=== PATIENT | female | born 1955 | race Caucasian/White ===

== ENCOUNTER 2024-02-13 05:54 | Day surgery (SDC) | payer MEDICARE, BC ==
[2024-02-07 15:12] LABS: BASOPHILS % (AUTO) 0.4 % (0-1); EOSINOPHILS # (AUTO) 0.2 X10'3 (0-0.9); EOSINOPHILS % (AUTO) 2.3 % (0-6); LYMPHOCYTES # (AUTO) 2.6 X10'3 (1.1-4.8); LYMPHOCYTES % (AUTO) 26.9 % (21-51); MEAN CORPUSCULAR HEMOGLOBIN 30.8 PG (27.0-31.0); MEAN CORPUSCULAR VOLUME 90.5 FL (78-98); MEAN PLATELET VOLUME 7.5 FL (7.4-10.4); MONOCYTES # (AUTO) 0.7 X10'3 (0-0.9); MONOCYTES % (AUTO) 7.2 % (2-12); NEUTROPHILS % (AUTO) 63.2 % (42-75); PRE OP HEMATOCRIT 45.4 % (35.0-45.0); PRE OP HEMOGLOBIN 15.5 g/dL (12.0-16.0); PRE OP PLATELET COUNT 341 X10'3 (140-440); PRE OP WHITE BLOOD COUNT 9.5 10'3 (4.8-10.8); RED BLOOD COUNT 5.02 X10'6 (4.20-5.60); RED CELL DISTRIBUTION WIDTH 13.1 % (11.5-14.5)
[2024-02-07 15:21] LABS: ALBUMIN 3.8 G/DL (3.4-5.0); ALBUMIN/GLOBULIN RATIO 1.2 (1.1-1.5); ALKALINE PHOSPHATASE 161 IU/L (46-116); BLOOD UREA NITROGEN 18 MG/DL (7-18); BUN/CREATININE RATIO 28.1 (10.0-20.0); CALCIUM 9.4 MG/DL (8.5-10.1); CHLORIDE 101 MMOL/L (99-107); CREATININE 0.64 MG/DL (0.40-0.90); PRE OP ALT 25 U/L (30-65); PRE OP ANION GAP 10 (8-16); PRE OP AST 20 U/L (10-37); PRE OP BILIRUB, TOTAL 0.5 MG/DL (0.0-1.0); PRE OP GLUCOSE 165 MG/DL (70-104); PRE OP POTASSIUM 4.1 MMOL/L (3.4-5.1); PRE OP SODIUM 139 MMOL/L (135-145); TOTAL CARBON DIOXIDE 28.5 MMOL/L (24-32); eGFR > 90 ML/MIN
[2024-02-13] VITALS (15 sets, daily range): BP systolic 110–144; BP diastolic 60–80; PULSE 74–100; RESP 10–18; TEMP 97.5; O2SAT 91–99
[~2024-02-13] VITALS: Ht 162.6 cm; Wt 86.4 kg
[~2024-02-13 05:54] MED LIST: ATOR-2 PO; CETI-194 PO; CHOL500050 PO; DIPH25CA83 PO; DULA4.5P SQ; FAMO20TA8 PO; FLUOCINOLONE; MELA10TA2 PO; METF-1203 PO; OLME40TA18 PO; [UNRECOGNIZED DRUG - CODE] INH
[2024-02-13] MEDS: ringers solution, lacted 1,000 ML IV SCH (06:22)
[2024-02-13] MEDS: famotidine 20mg tablet PO ONE (06:22)
[2024-02-13] MEDS: cefazolin 2gm/D5W 100mL 100 ML IV ONE (06:23)
[2024-02-13] MEDS ORDERED: methylene blue (5mg/ml) 50mg/10ml ampul IV ONE (06:58)
[2024-02-13] MEDS ORDERED: BUPIVACAINE liposomal/PF 13.3 MG/ML vial IM ONE (06:59)
[2024-02-13] MEDS ORDERED: fentaNYL/PF 50MCG/1 ML 2ML syringe ONE (08:16)
[2024-02-13] MEDS ORDERED: sevoflurane 250ml liquid IH ONE (08:24)
[2024-02-13] MEDS ORDERED: dexamethasone sod phosphate 4mg/ml inj. ONE (09:15)
[2024-02-13] MEDS ORDERED: ePHEDrine 50MG/ML INJ. ONE (09:15)
[2024-02-13] MEDS ORDERED: propofol inj 20 ML IV ONE (09:15)
[2024-02-13] MEDS ORDERED: LIDOcaine 2% (20mg/ml) 5ml vial ONE (09:16)
[2024-02-13] MEDS: LIDOcaine 1% (10mg/ml)w/preservative inj. 20ml MDV ONE (09:26)
[2024-02-13] MEDS: BUPIVAcaine/PF 2.5mg/ml (0.25%) 10ml vial ONE (09:32)
[2024-02-13] MEDS ORDERED: meperidine/PF 25mg/ml syringe IV PRN ×2 (09:50)
[2024-02-13] MEDS ORDERED: morphine 2 MG/ML inj. syringe IV PRN (09:50)
[2024-02-13] MEDS ORDERED: proCHLORperazine 10 MG/2 ml inj IV PRN (09:50)
[2024-02-13] MEDS ORDERED: enalaprilat dihydrate 2.5mg/2ml vial IV PRN (09:50)
[2024-02-13] MEDS ORDERED: ondansetron/PF 4mg/2ml inj IV PRN (09:50)
[2024-02-13] MEDS ORDERED: labetalol 20mg/4ml (5mg/ml) syringe IV PRN (09:50)
[2024-02-13] MEDS ORDERED: ringers solution, lacted 1,000 ML IV SCH (09:50)
== END 2024-02-13 11:35 | disposition home or self-care (01) ==
LOC: PAS 05:54
PROVIDERS: ATTEND Surgery
DX: C50.912 Malignant neoplasm of unspecified site of left female breast (principal); I10 Essential (primary) hypertension; E11.9 Type 2 diabetes mellitus without complications; K21.9 Gastro-esophageal reflux disease without esophagitis; E66.9 Obesity, unspecified; Z90.49 Acquired absence of other specified parts of digestive tract; Z90.710 Acquired absence of both cervix and uterus; Z98.51 Tubal ligation status; Z98.890 Other specified postprocedural states; Z68.32 Body mass index [BMI] 32.0-32.9, adult; Z88.5 Allergy status to narcotic agent; Z88.8 Allergy status to other drugs, medicaments and biological substances
CPT/HCPCS: 19301; 36415; 80053; 82948; 85025; A4215; A4618; A6258; A7000; J0690; J1100; J2001; J2405; J2704; J3010; J3490; J7030; J7120; Z7506; Z7508; Z7512; Z7610; 88307; C9290; Q9968